=== PATIENT | male | born 1930 | race Two or more races ===

== ENCOUNTER 2020-04-07 18:28 | Emergency (ER) | payer SELFPAY ==
[~2020-04-07] VITALS: Ht 177.8 cm; Wt 84.0 kg
[2020-04-07 18:31] VITALS: BP 189/90
== END 2020-04-07 19:30 | disposition left against medical advice (07) ==
LOC: ER 18:28
DX: R07.89 Other chest pain (principal); I10 Essential (primary) hypertension
CPT/HCPCS: 93005; 99283